=== PATIENT | female | born 2000 | race Caucasian/White ===

== ENCOUNTER 2022-12-13 03:50 | Emergency (ER) | payer SELFPAY ==
[~2022-12-13] VITALS: Ht 162.5 cm; Wt 63.5 kg
[2022-12-13] MEDS ORDERED: ACYCLOVIR400 MG PO (04:12)
== END 2022-12-13 05:16 | disposition home or self-care (01) ==
LOC: ED 03:50
DX: S70.01XA Contusion of right hip, initial encounter (principal); M54.50 Low back pain, unspecified; Z88.1 Allergy status to other antibiotic agents; V89.2XXA Person injured in unspecified motor-vehicle accident, traffic, initial encounter; Y93.89 Activity, other specified; Y92.410 Unspecified street and highway as the place of occurrence of the external cause; Y99.8 Other external cause status